=== PATIENT | female | born 1955 | race Two or more races ===

== ENCOUNTER 2019-12-11 22:49 | Emergency (ER) | payer OTHER, BC ==
[~2019-12-11] VITALS: Ht 149.9 cm; Wt 81.6 kg
[2019-12-12] MEDS: MORPHINE 2 MG/ML INJ. SYRINGE IVP ONE (00:04)
[2019-12-12] MEDS: ONDANSETRON HCL 4 MG/2 ML VIAL IVP ONE (00:09)
[2019-12-12] MEDS: KETOROLAC TROMETHAMINE 15 MG VIAL IVP ONE (00:13)
[2019-12-12 00:28] LABS: CALCIUM 8.7 mg/dL (8.4-11.0); CREATININE 1.23 mg/dL (0.55-1.30); POTASSIUM 3.7 mmol/L (3.5-5.1)
[2019-12-12 00:30] LABS: BASOPHILS % (AUTO) 0.2 % (0.0-2.0); EOSINOPHILS # (AUTO) 0.3 K/uL (0.0-0.4); EOSINOPHILS % (AUTO) 1.9 % (0.0-4.0); HEMATOCRIT 38.2 % (36-48); HEMOGLOBIN 12.3 g/dL (12.0-16.0); LYMPHOCYTES # (AUTO) 1.6 K/uL (1.0-5.5); MEAN CORPUSCULAR HEMOGLOBIN 27 pg (27-31); MEAN CORPUSCULAR HGB CONC 32 % (32-36); MEAN CORPUSCULAR VOLUME 84 fL (79.0-98.0); MONOCYTES % (AUTO) 7.2 % (1.7-9.3); NEUTROPHILS # (AUTO) 11.3 K/uL (1.8-7.7); NEUTROPHILS % (AUTO) 79.7 % (40.0-70.0); PLATELET COUNT (AUTO) 241 K/uL (130-430); RED BLOOD CELL COUNT(AUTO) 4.55 MIL/uL (4.2-6.2); RED CELL DISTRIBUTION WIDTH 14.3 % (9.0-15.0); WHITE BLOOD COUNT (AUTO) 14.2 K/uL (4.8-10.8)
[2019-12-12 00:36] LABS: ALBUMIN 3.6 g/dL (3.4-4.8); TOTAL BILIRUBIN 0.3 mg/dL (0.0-1.0)
[2019-12-12] MEDS: NACL 0.9% 1,000 ML IV ONE (00:49)
[2019-12-12 02:04] VITALS: BP_SYST 150
== END 2019-12-12 02:04 | disposition home or self-care (01) ==
LOC: SED 22:49
DX: N23 Unspecified renal colic (principal); N13.39 Other hydronephrosis; R11.10 Vomiting, unspecified; I10 Essential (primary) hypertension; E11.9 Type 2 diabetes mellitus without complications; Z85.3 Personal history of malignant neoplasm of breast; Z88.0 Allergy status to penicillin
CPT/HCPCS: 36415; 74176; 80053; 85025; 96361; 96374; 96375; 99284; J1885; J2270; J2405; J7030